=== PATIENT | female | born 2000 | race Caucasian/White ===

== ENCOUNTER 2022-02-22 19:24 | Emergency (ER) | payer OTHER ==
[~2022-02-22] VITALS: Ht 165.1 cm; Wt 64.5 kg
[2022-02-22 19:29] VITALS: BP 123/59; PULSE 92
== END 2022-02-22 20:18 | disposition home or self-care (01) ==
LOC: COL.ER 19:24
DX: S61.012A Laceration without foreign body of left thumb without damage to nail, initial encounter (principal); W54.8XXA Other contact with dog, initial encounter